=== PATIENT | female | born 1955 | race Caucasian/White ===

== ENCOUNTER → 2016-12-21 | Outpatient (REF) | LOC: WSOH 10:30 | DX: Z02.89 Encounter for other administrative examinations (principal) ==

== ENCOUNTER 2016-12-23 08:06 | Outpatient (RCR) | payer OTHER | END 2017-03-21 | LOC: WSOH | DX: S46.012A Strain of muscle(s) and tendon(s) of the rotator cuff of left shoulder, initial encounter (principal); S76.012A Strain of muscle, fascia and tendon of left hip, initial encounter; S80.11XA Contusion of right lower leg, initial encounter; W23.1XXA Caught, crushed, jammed, or pinched between stationary objects, initial encounter; Y99.0 Civilian activity done for income or pay ==